=== PATIENT | male | born 1980 | race Caucasian/White ===

== ENCOUNTER 2017-07-10 08:14 | Emergency (ER) | payer OTHER ==
[~2017-07-10] VITALS: Ht 182.9 cm; Wt 104.3 kg
[2017-07-10 08:20] VITALS: BP 129/86
--- NOTE | 2017-07-10 08:28 | ED GENERAL ADULT ---
History of Present Illness General Chief Complaint: Skin Rash/ Abcess Stated Complaint: ABCESS TO BOTTOM AND ALSO LEFT HAND Source: patient Exam Limitations: no limitations Vital Signs & Intake/Output Vital Signs & Intake/Output Vital Signs Date Time Temp Pulse Resp B/P B/P Pulse O2 O2 Flow FiO2 Mean Ox Delivery Rate 07/10 0849 97 07/11 819 96.5 92 18 129/86 98 Room Air Allergies Coded Allergies: No Known Drug Allergies (Intermediate, NO KNOWN REATIONS 07/10/17) Reconcile Medications Cephalexin (Keflex) 500 MG CAPSULE 1 CAP PO TID cellulitis Prednisone 10 MG TABLET 1 DOSE PO ONCE DAILY allergy 5 tabs x2 days then 4 tabs x2 days 3 tabs x 2 days 2 tabs x 2 days then 1 tab x2 days Triage Note: C/O PAIN AND SWELLING TO LEFT FOREFINGER SINCE LAST PM, (? INSECT BITE). ALSO C/O ABCESS TO COCCYX AREA X 10 DAYS. Triage Nurses Notes Reviewed? yes Onset: Abrupt Duration: day(s): (1), constant, continues in ED, getting worse Timing: single episode today Injury Environment: home Severity: mild, moderate No Modifying Factors: none HPI: 36-year-old male with no past medical history presents for evaluation of a possible insect bite to his left index finger. Patient states that yesterday he noticed a erythematous lesion to the dorsal aspect of the left index finger. He states since then he's noticed swelling and faint erythema that is spread from the finger into the dorsum of the hand. No discharge or fever. He denies any pain no pain with range of motion. No numbness or tingling. Patient also reports that for the past 10 days she has had a rash on his buttocks. He states that the rash initially started around his coccyx and spread outwards to both butt cheeks. There is no pain he states sometimes there is some pus discharge from the individual lesions. He states sometimes it itches while he is walking and his pants are rubbing against it. No pain. No contacts at home with similar rashes. No rashes anywhere else. He's never had similar this before. No fever. No recent travel and no sick contacts. Past History Travel History Traveled to [place] past 21 day No Medical History Any Pertinent Medical History? see below for history Neurological: NONE EENT: NONE Cardiovascular: NONE Respiratory: NONE Gastrointestinal: NONE Hepatic: NONE Renal: NONE Musculoskeletal: NONE Psychiatric: NONE Endocrine: NONE Surgical History Surgical History: non-contributory Psychosocial History Tobacco Use: Never used ETOH Use: occasional use Family History Hx Contributory? No Review of Systems Review of Systems Constitutional: Reports: no symptoms. EENTM: Reports: no symptoms. Respiratory: Reports: no symptoms. Cardiovascular: Reports: no symptoms. GI: Reports: no symptoms. Genitourinary: Reports: no symptoms. Musculoskeletal: Reports: no symptoms. Skin: Reports: see HPI, lesions, rash. Neurological/Psychological: Reports: no symptoms. Hematologic/Endocrine: Reports: no symptoms. Immunologic/Allergic: Reports: no symptoms. All Other Systems: Reviewed and Negative Physical Exam Physical Exam General Appearance: well developed/nourished, no apparent distress, alert, awake Head: atraumatic, normal appearance Eyes: Bilateral: normal appearance, EOMI. Ears, Nose, Throat: hearing grossly normal Neck: normal inspection, supple, full range of motion Respiratory: normal breath sounds, chest non-tender, no respiratory distress, lungs clear Cardiovascular: regular rate/rhythm Gastrointestinal: soft, non-tender Back: normal inspection, normal range of motion Extremities: normal range of motion, THERE IS A ERYTHEMATOUS LESION LOCATED ON THE DORSAL ASPECT OF THE PROXIMAL SEGMENT OF THE LEFT INDEX FINGER. tHERE IS SOME SOFT TISSUE SWELLING THAT EXTENDS TO THE DORSUM OF THE HAND. nO ERYTHEMA NOTED IN THE DORSUM OF THE HAND. fULL RANGE OF MOTION INTACT. nO FOCAL FLUCTUANT AREAS OR DISCHARGE Neurologic/Psych: no motor/sensory deficits, awake, alert, oriented x 3, normal gait Skin: intact, normal color, warm/dry, rash, IN THE BILATERAL BUTT CHEEKS AND COCCYX AREA THERE ARE MULTIPLE ERYTHEMATOUS PUSTULAR/PAPULAR LESIONS. nO PURULENT DISCHARGE IS NOTED. nO SOFT TISSUE SWELLING OR INDURATION NO FOCAL FLUCTUANT AREAS. nO PAIN TO PALPATION. nO VESICLES OR ULCERATIONS. Lymphatic: no anterior cervical mylene Core Measures ACS in differential dx? No CVA/TIA Diagnosis: No Sepsis Present: No Sepsis Focused Exam Completed? No Progress Differential Diagnoses I considered the following diagnoses in my evaluation of the patient: [ Cellulitis, abscess, contact dermatitis, folliculitis, tinea curIS, insect bite] Plan of Care: Patient seen and evaluated. He has 2 distinct lesions one on the left index finger the other on the buttocks. The left index finger lesion is suspicious for possible insect bite with secondary cellulitis. There is no focal fluctuant areas or discharge. There is some soft tissue swelling no erythema is noted in the dorsum of the hand. On the buttocks there is multiple papular/pustule lesions. No signs of abscess here. Suspect early cellulitis versus contact dermatitis. There is no contacts with similar rash. No recent travel. Considered fungal infection however lesions are not characteristic. Patient will be treated with cephalexin and prednisone. Advised him to use Benadryl as needed for itching he fears clean and dry apply warm compresses. Patient has an appointment on Thursday with his primary care doctor. Discussed return precautions return with any concerns patient agrees the plan Initial ED EKG: none Departure Departure Disposition: HOME OR SELF CARE Condition: Stable Clinical Impression Primary Impression: Rash and nonspecific skin eruption Referrals: Anne Walsh DO (PCP/Family) Additional Instructions: Keep the skin clean and dry. Take antibiotics and steroids as directed for the full course. Benadryl as needed for itching. Ibuprofen for pain/swelling. Apply warm compresses for 15-20 minutes every few hours. Crucible for signs of spreading infection like increasing pain spreading redness worsening swelling fever. Follow-up with her primary care doctor on Thursday as scheduled return to the ER sooner with any concerns. Departure Forms: Customer Survey General Discharge Information Prescriptions: Current Visit Scripts Cephalexin (Keflex) 1 CAP PO TID #21 CAP Prednisone 1 DOSE PO ONCE DAILY #1 DP 5 tabs x2 days then 4 tabs x2 days 3 tabs x 2 days 2 tabs x 2 days then 1 tab x2 days Critical Care Note Critical Care Note Critical Care Time: non-applicable
[2017-07-10] MEDS ORDERED: PREDNISONE10 M2 PO (08:50)
[2017-07-10] MEDS ORDERED: KEFLEX500 M1 PO (08:50)
== END 2017-07-10 08:53 ==
LOC: ERH 08:14
DX: R21 Rash and other nonspecific skin eruption (principal)